=== PATIENT | female | born 1980 | race Hispanic/Latino ===

== ENCOUNTER 2019-02-08 18:09 | Emergency (ER) | payer SELFPAY ==
[2019-02-08] MEDS ORDERED: ONDANSETRON 4 MG/2 ML VIAL ONE (18:56)
[2019-02-08] MEDS ORDERED: NA CHLORIDE 0.9% 1,000 ML ONE (18:56)
[2019-02-08] MEDS ORDERED: ACETAMINOPHEN 500 MG TAB ONE (18:56)
[2019-02-08 19:08] LABS: Absolute Lymphocytes (CBC) 0.5 K/uL (0.7-4.9); Basophils % 0.3 % (0-1.3); Lymphocytes % 4.2 % (15.3-44.8); MPV 9.8 fL (7.6-11.3); RBC Red Blood Cell Count 4.38 M/uL (3.86-4.86)
[2019-02-08 19:11] LABS: Albumin 4.5 g/dL (3.4-5.0); Bilirubin Direct 0.2 mg/dL (0-0.2); Bilirubin Total 0.5 mg/dL (0.2-1.0); Potassium 3.8 mmol/L (3.5-5.1); Protein, Total 8.4 g/dL (6.4-8.2)
[2019-02-08 19:41] LABS: Blood Morphology Comment NOT SEEN (NOT SEEN); Platelet Estimate ADEQ
--- NOTE | 2019-02-08 19:51 | RAD REPORT ---
EXAM DESCRIPTION: CTAbdomen Pelvis W Contrast - 02/08/2019 7:40 pm CLINICAL HISTORY: Abdominal pain. Abd pain;Fever COMPARISON: No comparisons TECHNIQUE: Biphasic CT imaging of the abdomen and pelvis was performed with 100 ml non-ionic IV cont rast. All CT scans are performed using dose optimization technique as appropriate and may include automated exposure control or mA/KV adjustment according to patient size. FINDINGS: The lung bases are clear. The liver demonstrates a 16 mm cyst in the right lobe. Spleen, pancreas, adrenal glands and kidneys a re within normal limits. No bowel obstruction, free air, or abscess. There is thickening/inflammatory changes with retained st ool in the ileum. Mild free fluid is seen in the pelvis. The appendix is normal. No evidence of sign ificant lymphadenopathy. No suspicious bony findings. IMPRESSION: A mild ileitis pattern is present. This may indicate inflammatory bowel disease or infec tious ileitis.
[2019-02-08 20:27] LABS: Urine Blood 1+ (NEG); Urine Glucose NEGATIVE (NEG); Urine Protein NEGATIVE (NEG); Urine Specific Gravity 1.025 (1.005-1.030); Urine pH 5.5 (5.0-7.0)
--- NOTE | 2019-02-08 20:37 | ER ---
Nurse's Notes [facility] Name: Stephen Trujillo Age: 38 yrs Sex: Female : 1980 Arrival Date: 02/08/2019 Time: 18:12 Bed 14 Private MD: Diagnosis: Ileitis;Diarrhea, unspecified;Vomiting Presentation: 02/08 18:23 Presenting complaint: Patient states: upper abd pain N/V/D since last night. Transition la1 of care: patient was not received from another setting of care. Onset of symptoms was February 08, 2019. Risk Assessment: Do you want to hurt yourself or someone else? Patient reports no desire to harm self or others. Initial Sepsis Screen: Does the patient meet any 2 criteria? HR > 90 bpm. Does the patient have a suspected source of infection? No. Patient's initial sepsis screen is negative. Care prior to arrival: None. 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 - Social history:: Smoking status: Patient/guardian denies using tobacco. - Ebola Screening: : No symptoms or risks identified at this time. Screenin:25 Abuse screen: Denies threats or abuse. Nutritional screening: No deficits noted. rb1 Tuberculosis screening: No symptoms or risk factors identified. Fall Risk None identified. Assessment: 18:25 General: Appears in no apparent distress. comfortable, slender, Behavior is calm, rb1 cooperative, Reports fever for feeling ill for 12-24 hours. Pain: Complains of pain in right upper quadrant Pain currently is 3 out of 10 on a pain scale. at worst was 8 out of 10 on a pain scale. Pain began 1 day ago. Neuro: Level of Consciousness is awake, alert, obeys commands, Oriented to person, place, time, situation. Cardiovascular: Capillary refill < 3 seconds is brisk in bilateral fingers. Respiratory: Airway is patent Respiratory effort is even, unlabored, Respiratory pattern is regular, symmetrical. GI: Bowel sounds present X 4 quads. Abd is soft X 4 quads Reports nausea, vomiting, since last night. : No signs and/or symptoms were reported regarding the genitourinary system. Derm: Skin is pink, warm \T\ dry. 19:45 Reassessment: Patient appears in no apparent distress at this time. Patient is alert, lp1 oriented x 3, equal unlabored respirations, skin warm/dry/pink. Patient returned from CT at this time Patient denies pain at this time. 21:00 Reassessment: Patient appears in no apparent distress at this time. Patient is alert, lp1 oriented x 3, equal unlabored respirations, skin warm/dry/pink. Patient aware of pending discharge on completion of IV med administration Patient states feeling better. Vital Signs: 18:22 BP 115 / 78; Pulse 114; Resp 18; Temp 100.4; Pulse Ox 100% on R/A; Weight 44.45 kg; la1 Height 5 ft. 6 in. (167.64 cm); Pain 7/10; 19:53 BP 100 / 52; Pulse 87; Resp 18; Pulse Ox 100% on R/A; Pain 0/10; lp1 20:30 BP 108 / 60; Pulse 104; Resp 16; Pulse Ox 99% on R/A; lp1 21:16 BP 111 / 60; Pulse 94; Resp 16; Temp 98.9(O); Pulse Ox 100% on R/A; lp1 18:22 Body Mass Index 15.82 (44.45 kg, 167.64 cm) la1 ED Course: 18:12 Patient arrived in ED. as 18:22 Arm band placed on right wrist. la1 18:23 Triage completed. la1 18:24 Deshawn Key NP is PHCP. pm1 18:24 Taryn Aldridge MD is Attending Physician. pm1 18:25 Patient has correct armband on for positive identification. Bed in low position. Call rb1 light in reach. Side rails up X 1. Pulse ox on. NIBP on. Warm blanket given. 18:47 Radiology exam delayed due to lab results not completed at this time. test mw3 not completed at this time. 18:51 Initial lab(s) drawn, by me, sent to lab. Urine collected: clean catch specimen, clear. ms Inserted saline lock: 20 gauge in right antecubital area, using aseptic technique. Blood collected. 19:04 Molly Taveras, RN is Primary Nurse. rb1 19:40 CT completed. Patient tolerated procedure well. Patient moved back from CT. bq 19:41 CT Abd/Pelvis - IV Contrast Only In Process Unspecified. EDMS 19:54 No provider procedures requiring assistance completed. lp1 21:22 IV discontinued, No redness/swelling at site. Pressure dressing applied. lp1 Administered Medications: 19:04 Drug: Tylenol 1000 mg Route: PO; rb1 21:13 Follow up: Response: Temperature is decreased lp1 19:04 Drug: Zofran 4 mg Route: IVP; Site: right antecubital; rb1 20:00 Follow up: Response: No adverse reaction lp1 19:05 Drug: NS 0.9% 1000 ml Route: IV; Rate: 1000 ml; Site: right antecubital; rb1 20:30 Follow up: IV Status: Completed infusion; IV Intake: 1000ml lp1 20:40 Drug: Flagyl 500 mg Volume: 100 ml; Route: IVPB; Rate: 200 ml/hr; Infused Over: 30 lp1 mins; Site: right antecubital; 21:13 Follow up: IV Status: Completed infusion; IV Intake: 100ml lp1 20:40 Drug: Cipro 500 mg Route: PO; lp1 21:16 Follow up: Response: No adverse reaction lp1 Intake: 20:30 IV: 1000ml; Total: 1000ml. lp1 21:13 IV: 100ml; Total: 1100ml. lp1 Outcome: 20:36 Discharge ordered by MD. pm1 21:22 Discharged to home ambulatory, with significant other. lp1 21:22 Condition: good 21:22 Discharge instructions given to patient, significant other, Instructed on discharge instructions, follow up and referral plans. medication usage, Demonstrated understanding of instructions, follow-up care, medications, Prescriptions given X 4. 21:23 Patient left the ED. lp1 Signatures: Dispatcher [employer] EDMS Doreen Villalobos Amelia as Solis, Maria ms Lexis Duran RN RN lp1 Hiren Guerrero RN RN la1 Molly Taveras, RN RN rb1 Deshawn Key, MARINE ENGINE MACHINIST MARINE ENGINE MACHINIST pm1 Margarita Mesa [email or web address]
--- NOTE | 2019-02-08 20:37 | EDPHYS ---
Physician Documentation [facility] Name: Stephen Trujillo Age: 38 yrs Sex: Female : 1980 Arrival Date: 02/08/2019 Time: 18:12 Bed 14 Private MD: ED Physician Taryn Aldridge HPI: 02/08 18:35 This 38 yrs old Female presents to ER via Ambulatory with complaints of pm1 Abdominal Pain, Nausea, Diarrhea. 18:35 The patient presents with abdominal pain in the epigastric area. Onset: The pm1 symptoms/episode began/occurred 3 day(s) ago. The symptoms do not radiate. Associated signs and symptoms: Pertinent positives: fever, Watery diarrhea, Pertinent negatives: chest pain, dysuria, shortness of breath, vomiting. The symptoms are described as crampy. Modifying factors: The symptoms are alleviated by nothing, the symptoms are aggravated by food. The patient has not experienced similar symptoms in the past. The patient has not recently seen a physician. 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 - Social history:: Smoking status: Patient/guardian denies using tobacco. - Ebola Screening: : No symptoms or risks identified at this time. ROS: 18:35 Eyes: Negative for injury, pain, redness, and discharge, ENT: Negative for injury, pm1 pain, and discharge, Neck: Negative for injury, pain, and swelling, Cardiovascular: Negative for chest pain, palpitations, and edema, Respiratory: Negative for shortness of breath, cough, wheezing, and pleuritic chest pain. 18:35 Back: Negative for injury and pain, : Negative for injury, bleeding, discharge, and swelling, MS/Extremity: Negative for injury and deformity, Skin: Negative for injury, rash, and discoloration, Neuro: Negative for headache, weakness, numbness, tingling, and seizure. 18:35 Constitutional: Positive for fever, Negative for poor PO intake. 18:35 Abdomen/GI: Positive for abdominal pain, nausea, diarrhea, Negative for vomiting, constipation. Exam: 18:35 Constitutional: This is a well developed, well nourished patient who is awake, alert, pm1 and in no acute distress. Head/Face: Normocephalic, atraumatic. Eyes: Pupils equal round and reactive to light, extra-ocular motions intact. Lids and lashes normal. Conjunctiva and sclera are non-icteric and not injected. Cornea within normal limits. Periorbital areas with no swelling, redness, or edema. ENT: Nares patent. No nasal discharge, no septal abnormalities noted. Tympanic membranes are normal and external auditory canals are clear. Oropharynx with no redness, swelling, or masses, exudates, or evidence of obstruction, uvula midline. Mucous membranes moist. Neck: Trachea midline, no thyromegaly or masses palpated, and no cervical lymphadenopathy. Supple, full range of motion without nuchal rigidity, or vertebral point tenderness. No Meningismus. Chest/axilla: Normal chest wall appearance and motion. Nontender with no deformity. No lesions are appreciated. Cardiovascular: Regular rate and rhythm with a normal S1 and S2. No gallops, murmurs, or rubs. Normal PMI, no JVD. No pulse deficits. Respiratory: Lungs have equal breath sounds bilaterally, clear to auscultation and percussion. No rales, rhonchi or wheezes noted. No increased work of breathing, no retractions or nasal flaring. 18:35 Back: No spinal tenderness. No costovertebral tenderness. Full range of motion. Skin: Warm, dry with normal turgor. Normal color with no rashes, no lesions, and no evidence of cellulitis. MS/ Extremity: Pulses equal, no cyanosis. Neurovascular intact. Full, normal range of motion. 18:35 Abdomen/GI: Inspection: abdomen appears normal, Bowel sounds: normal, Palpation: soft, mild abdominal tenderness, in the epigastric area, mass, is not appreciated, rebound tenderness, is not appreciated. 18:35 Neuro: Orientation: is normal, Motor: is normal, moves all fours. Vital Signs: 18:22 BP 115 / 78; Pulse 114; Resp 18; Temp 100.4; Pulse Ox 100% on R/A; Weight 44.45 kg; la1 Height 5 ft. 6 in. (167.64 cm); Pain 7/10; 19:53 BP 100 / 52; Pulse 87; Resp 18; Pulse Ox 100% on R/A; Pain 0/10; lp1 20:30 BP 108 / 60; Pulse 104; Resp 16; Pulse Ox 99% on R/A; lp1 21:16 BP 111 / 60; Pulse 94; Resp 16; Temp 98.9(O); Pulse Ox 100% on R/A; lp1 18:22 Body Mass Index 15.82 (44.45 kg, 167.64 cm) la1 MDM: 18:30 Patient medically screened. pm1 20:34 Data reviewed: vital signs. Data interpreted: e m assembler: Pulse oximetry:. pm1 Counseling: I had a detailed discussion with the patient and/or guardian regarding: the historical points, exam findings, and any diagnostic results supporting the discharge/admit diagnosis, lab results, radiology results, the need for outpatient follow up, to return to the emergency department if symptoms worsen or persist or if there are any questions or concerns that arise at home. 02/08 18:30 Order name: Basic Metabolic Panel; Complete Time: 20:01 pm1 02/08 18:30 Order name: CBC with Diff; Complete Time: 20: pm1 02/08 18:30 Order name: Creatinine for Radiology; Complete Time: 20: pm1 02/08 18:30 Order name: Hepatic Function; Complete Time: 20: pm1 02/08 18:30 Order name: Lipase; Complete Time: 20: pm1 02/08 19:10 Order name: Manual Differential; Complete Time: 20: EDUT 02/08 18:35 Order name: CT Abd/Pelvis - IV Contrast Only; Complete Time: 20:01 pm1 02/08 19:22 Order name: Urine Dipstick--Ancillary (enter results); Complete Time: 20:33 [facility] 02/08 19:22 Order name: Urine --Ancillary (enter results); Complete Time: 20:33 [facility] 02/08 18:30 Order name: IV Saline Lock; Complete Time: 18:52 pm1 02/08 18:30 Order name: Labs collected and sent; Complete Time: 18:52 pm1 02/08 18:35 Order name: Urine Dipstick-Ancillary (obtain specimen); Complete Time: 18:52 pm1 02/08 18:35 Order name: Urine Test (obtain specimen); Complete Time: 18:52 pm1 Administered Medications: 19:04 Drug: Tylenol 1000 mg Route: PO; rb1 21:13 Follow up: Response: Temperature is decreased lp1 19:04 Drug: Zofran 4 mg Route: IVP; Site: right antecubital; rb1 20:00 Follow up: Response: No adverse reaction lp1 19:05 Drug: NS 0.9% 1000 ml Route: IV; Rate: 1000 ml; Site: right antecubital; rb1 20:30 Follow up: IV Status: Completed infusion; IV Intake: 1000ml lp1 20:40 Drug: Flagyl 500 mg Volume: 100 ml; Route: IVPB; Rate: 200 ml/hr; Infused Over: 30 lp1 mins; Site: right antecubital; 21:13 Follow up: IV Status: Completed infusion; IV Intake: 100ml lp1 20:40 Drug: Cipro 500 mg Route: PO; lp1 21:16 Follow up: Response: No adverse reaction lp1 Disposition: 02/09 07:15 Co-signature as Attending Physician, Taryn Aldridge MD. ky2 Disposition: 02/08/19 20:36 Discharged to Home. Impression: Ileitis, Diarrhea, unspecified, Vomiting. - Condition is Stable. - Discharge Instructions: Abdominal Pain, Adult, Diarrhea, Adult, Vomiting, Child. - Prescriptions for Flagyl 500 mg Oral Tablet - take 1 tablet by ORAL route every 8 hours for 10 days; 30 tablet. Cipro 500 mg Oral Tablet - take 1 tablet by ORAL route every 12 hours for 10 days; 20 tablet. promethazine 25 mg Oral Tablet - take 1 tablet by ORAL route every 6 hours As needed; 20 tablet. Bentyl 20 mg Oral Tablet - take 1 tablet by ORAL route every 6 hours As needed; 20 tablet. - Medication Reconciliation Form, Thank You Letter, Antibiotic Education, Prescription Opioid Use form. - Follow up: Emergency Department; When: As needed; Reason: Worsening of condition. Follow up: Private Physician; When: 2 - 3 days; Reason: Recheck today's complaints, Continuance of care, Re-evaluation by your physician. - Problem is new. - Symptoms have improved. Signatures: Dispatcher [employer] Lexis Guajardo RN RN lp1 Hiren Guerrero RN RN la1 Molly Taveras RN RN rb1 Deshawn Key NP THERMODYNAMICS ENGINEER pm1 Taryn Aldridge MD MD ma2 Corrections: (The following items were deleted from the chart) 02/08 21:23 20:36 02/08/2019 20:36 Discharged to Home. Impression: Ileitis; Diarrhea, unspecified; lp1 Vomiting. Condition is Stable. Forms are Medication Reconciliation Form, Thank You Letter, Antibiotic Education, Prescription Opioid Use. Follow up: Emergency Department; When: As needed; Reason: Worsening of condition. Follow up: Private Physician; When: 2 - 3 days; Reason: Recheck today's complaints, Continuance of care, Re-evaluation by your physician. Problem is new. Symptoms have improved. pm1
[2019-02-08] MEDS ORDERED: CIPROFLOXACIN HCL 500 MG TAB ONE (20:38)
[2019-02-08] MEDS ORDERED: METRONIDAZOLE 500mg IVPB 500 MG/100 ML BAG IV ONE (20:38)
[2019-02-08 21:34] VITALS: BP 111/60; TEMP 98.9; O2SAT 100
== END 2019-02-08 21:23 | disposition home or self-care (01) ==
LOC: ER 18:09
DX: K52.9 Noninfective gastroenteritis and colitis, unspecified (principal); R11.10 Vomiting, unspecified; R19.7 Diarrhea, unspecified
CPT/HCPCS: 36415; 74177; 80048; 80076; 81003; 81025; 83690; 85025; 96361; 96365; 96375; 99284; J2405; J7030; Q9967